=== PATIENT | female | born 1945 | race Caucasian/White ===

== ENCOUNTER → 2019-09-29 10:22 | Outpatient (CLI) | payer MEDICARE, OTHER, SELFPAY ==
--- NOTE | 2019-09-29 | DI.MG.S_ITS ---
BILATERAL DIGITAL SCREENING MAMMOGRAM 3D/2D WITH CAD: 09/29/2019 CLINICAL: Routine screening. Family history of breast cancer. Comparison is made to exams dated: 06/30/2016 mammogram and 03/16/2014 mammogram - [facility]. The tissue of both breasts is heterogeneously dense. This may lower the sensitivity of mammography. Current study was also evaluated with a Computer Aided Detection (CAD) system. No significant masses, calcifications, or other findings are seen in either breast. There has been no significant interval change. IMPRESSION: NEGATIVE There is no mammographic evidence of malignancy. A 1 year screening mammogram is recommended. This exam was interpreted at Station ID: [id number]. NOTE: For mammograms, a report in lay terms will be sent to the patient. Approximately 15% of breast malignancies will not be visualized mammographically. In the management of a palpable breast mass, a negative mammogram must not discourage biopsy of a clinically suspicious lesion. Electronically Signed By: Jodi melendez/freeman:10/02/2019 11:41:11 letter sent: Normal Exam ACR BI-RADS Category 1: Negative 3341F
== END ==
PROVIDERS: Referring Provider Internal Medicine; Visit Provider Internal Medicine
DX: Z12.31 Encounter for screening mammogram for malignant neoplasm of breast (principal); Z80.3 Family history of malignant neoplasm of breast
CPT/HCPCS: 77063; 77067

== ENCOUNTER → 2021-07-28 10:45 | Outpatient (CLI) | payer OTHER, SELFPAY ==
--- NOTE | 2021-07-28 10:48 | DI.MG.S_ITS ---
BILATERAL DIGITAL SCREENING MAMMOGRAM 3D/2D WITH CAD: 07/28/2021 CLINICAL: Routine screening. Family history of breast cancer. Comparison is made to exams dated: 09/29/2019 mammogram - [facility], 06/30/2016 mammogram, and 03/16/2014 mammogram - [facility]. The tissue of both breasts is heterogeneously dense. This may lower the sensitivity of mammography. Current study was also evaluated with a Computer Aided Detection (CAD) system. No significant masses, calcifications, or other findings are seen in either breast. There has been no significant interval change. IMPRESSION: NEGATIVE There is no mammographic evidence of malignancy. A 1 year screening mammogram is recommended. This exam was interpreted at Station ID: [id number]. NOTE: For mammograms, a report in lay terms will be sent to the patient. Approximately 15% of breast malignancies will not be visualized mammographically. In the management of a palpable breast mass, a negative mammogram must not discourage biopsy of a clinically suspicious lesion. Electronically Signed By: Jose D Rodriguez acr/freeman:07/28/2021 12:52:31 letter sent: Normal Exam ACR BI-RADS Category 1: Negative 3341F
== END ==
PROVIDERS: PCP Student in an Organized Health Care Education/Training Program; Referring Provider Student in an Organized Health Care Education/Training Program; Visit Provider Student in an Organized Health Care Education/Training Program
DX: Z12.31 Encounter for screening mammogram for malignant neoplasm of breast (principal); Z80.3 Family history of malignant neoplasm of breast
CPT/HCPCS: 77063; 77067

== ENCOUNTER → 2023-04-30 16:02 | Outpatient (CLI) | payer OTHER, SELFPAY ==
--- NOTE | 2023-04-30 | DI.RAD.S_ITS ---
PROCEDURE: XR KNEE LT 3V INDICATIONS: PAIN TECHNIQUE: 3 views of the knee were acquired. COMPARISON: None. FINDINGS: Bones: No fractures or dislocations. No suspicious bony lesions. femorotibial joint and tricompartmental periarticular osteophyte formation. Mild patellofemoral knee joint space narrowing and tricompartmental periarticular osteophyte formation. Lateral patellar tilt and migration bilaterally. Soft tissues: Small joint effusion. No suspicious soft tissue calcifications. IMPRESSION: 1. Tricompartmental knee joint degeneration, most notably involving the medial femoral tibial and lateral patellofemoral knee joint. Dictated by: Evelio Cooper [facility] Interpreted: Claudy Majano MD on 04/30/2023 at 16:35 Transcribed by: ELMER on 04/30/2023 at 16:36 Approved by: Claudy Majano M.D. on 04/30/2023 at 16:41
--- NOTE | 2023-04-30 | DI.RAD.S_ITS ---
PROCEDURE: XR HIP W PEL IF DONE RT 2V INDICATIONS: PAIN TECHNIQUE: AP pelvis with lateral view(s) of the right hip(s). COMPARISON: None. FINDINGS: Bones: No fractures or dislocations. Pelvic ring appears intact. No suspicious bony lesions. [id number] symmetric axial hip joint space narrowing with mild periarticular osteophyte formation. There is osseous prominence along the right femoral head/neck junction. Soft tissues: The visualized bowel gas pattern is normal. No suspicious soft tissue calcifications. IMPRESSION: 1. Wmsm-ir-kcvwnlfk symmetric hip joint degeneration. 2. Osseous prominence along the head/neck junction which can be associated with CAM type acetabular impingement in the appropriate clinical setting. If indicated, MRI could be performed for further assessment. Dictated by: Evelio DRAPER Interpreted: Claudy Majano MD on 04/30/2023 at 16:34 Transcribed by: ELMER on 04/30/2023 at 16:34 Approved by: Claudy Majano M.D. on 04/30/2023 at 16:41
== END ==
PROVIDERS: PCP Student in an Organized Health Care Education/Training Program; Referring Provider Family Medicine; Visit Provider Family Medicine
DX: M16.11 Unilateral primary osteoarthritis, right hip (principal); M17.12 Unilateral primary osteoarthritis, left knee; M25.551 Pain in right hip; M25.562 Pain in left knee; G89.29 Other chronic pain
CPT/HCPCS: 73502; 73562

== ENCOUNTER → 2023-10-05 13:23 | Outpatient (CLI) | payer OTHER, SELFPAY ==
--- NOTE | 2023-10-05 13:24 | DI.MG.S_ITS ---
BILATERAL DIGITAL SCREENING MAMMOGRAM 3D/2D WITH CAD: 10/05/2023 CLINICAL: Routine screening. Family history of breast cancer. Comparison is made to exams dated: 07/28/2021 mammogram - [facility], 06/30/2016 mammogram - [facility], and 09/29/2019 mammogram - [facility]. Both breasts are heterogeneously dense, which may obscure small masses (category c / 51-75% glandular tissue). Current study was also evaluated with a Computer Aided Detection (CAD) system. No significant masses, calcifications, or other findings are seen in either breast. There has been no significant interval change. IMPRESSION: NEGATIVE There is no mammographic evidence of malignancy. A 1 year screening mammogram is recommended. Based on the Tyrer Cuzick model (a risk assessment model) the patient's lifetime risk is 11.9% and her 10 year risk is 0.0%. According to the ACR, ACS, and NCCN guidelines, an annual breast MRI exam along with mammogram is recommended if the patient's lifetime risk is 20% or greater. This exam was interpreted at Station ID: [id number]. NOTE: For mammograms, a report in lay terms will be sent to the patient. Approximately 15% of breast malignancies will not be visualized mammographically. In the management of a palpable breast mass, a negative mammogram must not discourage biopsy of a clinically suspicious lesion. Electronically Signed By: Giles orellana/freeman:10/05/2023 14:21:15 letter sent: Normal Exam ACR BI-RADS Category 1: Negative 3341F
== END ==
PROVIDERS: PCP Student in an Organized Health Care Education/Training Program; Referring Provider Family Medicine; Visit Provider Family Medicine
DX: Z12.31 Encounter for screening mammogram for malignant neoplasm of breast (principal); Z80.3 Family history of malignant neoplasm of breast; R92.333 Mammographic heterogeneous density, bilateral breasts
CPT/HCPCS: 77063; 77067